=== PATIENT | male | born 1980 | race American Indian/Alaskan Native ===

== ENCOUNTER → 2016-08-19 | Outpatient (CLI) | payer OTHER ==
--- NOTE | 2016-08-22 09:18 | MR ---
EXAMINATION: MRI lumbar spine HISTORY: Radiculopathy COMPARISON: None TECHNIQUE: Multiplanar and multisequence images obtained of the lumbar spine without contrast. FINDINGS: The lumbar spinal alignment appears normal. The vertebral body heights appear well maintai rosalinda. There is no abnormal bone marrow signal. The distal spinal cord appears normal and the conus te rminates at L2. The SI joints are symmetric with early osteoarthritic changes anteriorly visualized retroperitoneal structures appear normal. T12 L4: Unremarkable. L4-L5: Tiny diffuse disc bulge without significant spinal canal or neural foraminal stenosis. L5-S1: Moderate right paracentral disc extrusion abutting the traversing right L5 nerve root. No sig nificant spinal canal stenosis. Mild bilateral neural foraminal stenosis. IMPRESSION: 1. Degenerative disc disease noted at L4-L5 and more so L5-S1 with details above.
== END ==
LOC: MW.MRI 13:44
PROVIDERS: ATTEND Family Medicine
DX: M54.5 Low back pain (principal); M54.16 Radiculopathy, lumbar region
CPT/HCPCS: 72148; 72148-26

== ENCOUNTER 2017-08-15 10:28 | Emergency (ER) | payer BC, OTHER ==
[2017-08-15] MEDS ORDERED: Sodium Chloride 0.9% 1,000 ML IV ONE (10:38)
[2017-08-15] MEDS ORDERED: Tamsulosin 0.4 MG Cap.ER PO ONE (10:39)
[2017-08-15] MEDS ORDERED: Ondansetron 4 MG/2 ML SDV IVPUSH ONE (10:39)
[2017-08-15] MEDS ORDERED: Ketorolac 30 MG/ML SDV IVPUSH ONE (10:39)
[2017-08-15] MEDS ORDERED: Sodium Chloride 0.9% 500 ML IV ONE (10:43)
[2017-08-15] MEDS ORDERED: Sodium Chloride 0.9% 1,000 ML IV SCH (10:45)
[2017-08-15] MEDS ORDERED: Sodium Chloride 0.9% 500 ML IV SCH (10:45)
--- NOTE | 2017-08-15 10:51 | EDM.PDOC ---
ED HPI GENERAL MEDICAL PROBLEM - General Chief Complaint: Flank Pain Stated Complaint: POSSIBLE KIDNEY STONE Time Seen by Provider: 08/15/17 10:37 Source of Information: Reports: Patient History Limitations: Reports: No Limitations - History of Present Illness INITIAL COMMENTS - FREE TEXT/NARRATIVE: Presents reporting left leg pain and dysuria. The patient states that yesterday he had some burning and frequency with urination. This morning he started with a backache on the left side. He went to an urgent care clinic where they did a UA been told him he had hematuria. They told him to report here for further evaluation. No history of renal stones but both of his parents have had kidney stones in the past. Otherwise healthy without chronic medical problems except a disc bulge at L5-S1. No fever, vomiting. Left Flank Pain Score (Numeric/FACES): 4 - Related Data Allergies Allergy/AdvReac Type Severity Reaction Status Date / Time Sulfa (Sulfonamide Allergy Rash Verified 08/15/17 10:35 Antibiotics) Home Meds: Home Meds Cyclobenzaprine [Flexeril] 10 mg PO ASDIRECTED PRN 08/15/17 [History] Hydrocodone/Acetaminophen [Hydrocodon-Acetaminophen 5-325] 1 tab PO ASDIRECTED PRN 08/15/17 [History] Tamsulosin [Tamsulosin 24 Hr] 1 cap PO DAILY #14 cap.er 08/15/17 [Rx] Past Medical History Cardiovascular History: Reports: Other (See Below) Other Cardiovascular History: hx of chostochondroitis Other Musculoskeletal History: bulging disc L5S1 - Infectious Disease History Infectious Disease History: Reports: Chicken Pox Social & Family History - Family History Family Medical History: Noncontributory - Tobacco Use Smoking Status *Q: Never Smoker - Caffeine Use Caffeine Use: Reports: Coffee - Recreational Drug Use Recreational Drug Use: No ED ROS GENERAL - Review of Systems Review Of Systems: ROS reveals no pertinent complaints other than HPI. ED EXAM, RENAL/ - Physical Exam Exam: See Below Exam Limited By: No Limitations General Appearance: Alert, No Apparent Distress Ears: Normal External Exam Nose: Normal Inspection Throat/Mouth: Normal Inspection Head: Atraumatic, Normocephalic Neck: Normal Inspection Respiratory/Chest: No Respiratory Distress, Lungs Clear, Normal Breath Sounds Cardiovascular: Normal Peripheral Pulses, Regular Rate, Rhythm, No Murmur GI/Abdominal: Soft, Non-Tender, No Distention Back Exam: Normal Inspection, CVA Tenderness (L) Extremities: Normal Inspection Neurological: Alert, Oriented, Normal Cognition Course - Vital Signs Last Recorded V/S: Last Vital Signs Temp 36.1 C 08/15/17 10:30 Pulse 65 08/15/17 10:30 Resp 20 08/15/17 10:30 BP 141/87 H 08/15/17 10:30 Pulse Ox 99 08/15/17 10:30 - Orders/Labs/Meds Orders: Active Orders 24 hr Category Date Time Status Abdomen Pelvis wo Cont [CT] Stat Exams 08/15/17 10:38 Ordered CBC WITH AUTO DIFF [HEME] Stat Lab 08/15/17 10:38 Ordered CMP [COMPREHENSIVE METABOLIC PN,CMP] [CHEM] Stat Lab 08/15/17 10:37 Ordered UA W/MICROSCOPIC [URIN] Stat Lab 08/15/17 10:38 Ordered Sodium Chloride 0.9% [Normal Saline] 500 ml Med 08/15/17 10:43 Active IV .BOLUS Sodium Chloride 0.9% [Normal Saline] 500 ml Med 08/15/17 10:45 Active IV .BOLUS Medication Orders Sodium Chloride (Normal Saline) 500 mls @ 999 mls/hr IV .BOLUS PIYUSH Sodium Chloride (Normal Saline) 500 mls @ 999 mls/hr IV .BOLUS ONE Stop: 08/15/17 11:13 Meds: Medications Generic Name Dose Route Start Last Admin Trade Name Freq PRN Reason Stop Dose Admin Sodium Chloride 500 mls @ 999 mls/hr 08/15/17 10:45 Normal Saline IV .BOLUS PIYUSH Sodium Chloride 500 mls @ 999 mls/hr 08/15/17 10:43 Normal Saline IV 08/15/17 11:13 .BOLUS ONE Discontinued Medications Generic Name Dose Route Start Last Admin Trade Name Freq PRN Reason Stop Dose Admin Sodium Chloride 1,000 mls @ 999 mls/hr 08/15/17 10:45 Normal Saline IV .BOLUS PIYUSH Ketorolac Tromethamine 30 mg 08/15/17 10:39 Toradol IVPUSH 08/15/17 10:40 ONETIME ONE Ondansetron HCl 4 mg 08/15/17 10:39 Zofran IVPUSH 08/15/17 10:40 ONETIME ONE Tamsulosin HCl 0.4 mg 08/15/17 10:39 Flomax PO 08/15/17 10:40 ONETIME ONE - Re-Assessments/Exams Free Text/Narrative Re-Assessment/Exam: 08/15/17 11:[address] Corbett Departure - Departure Time of Disposition: 11:45 Disposition: Home, Self-Care 01 Condition: Good Clinical Impression: Ureteral stone - Discharge Information Instructions: Kidney Stones, [id number] Additional Instructions: 1. Take your medication once daily until stone passes or you see urology. 2. Drink plenty of fluids. You may take the hydrocodone for pain that you already have for your back pain. 3. Strain all urine. 4. Follow up with urology at [facility]. - My Orders Last 24 Hours: My Active Orders 08/15/17 10:37 CMP [COMPREHENSIVE METABOLIC PN,CMP] [CHEM] Stat 08/15/17 10:38 Abdomen Pelvis wo Cont [CT] Stat CBC WITH AUTO DIFF [HEME] Stat UA W/MICROSCOPIC [URIN] Stat 08/15/17 10:43 Sodium Chloride 0.9% [Normal Saline] 500 ml IV .BOLUS 08/15/17 10:45 Sodium Chloride 0.9% [Normal Saline] 500 ml IV .BOLUS - Assessment/Plan Last 24 Hours: My Active Orders 08/15/17 10:37 CMP [COMPREHENSIVE METABOLIC PN,CMP] [CHEM] Stat 08/15/17 10:38 Abdomen Pelvis wo Cont [CT] Stat CBC WITH AUTO DIFF [HEME] Stat UA W/MICROSCOPIC [URIN] Stat 08/15/17 10:43 Sodium Chloride 0.9% [Normal Saline] 500 ml IV .BOLUS 08/15/17 10:45 Sodium Chloride 0.9% [Normal Saline] 500 ml IV .BOLUS
--- NOTE | 2017-08-15 11:35 | CT ---
CT of the abdomen and pelvis without contrast. HISTORY: Left flank pain TECHNIQUE: Axial CT images were obtained of the abdomen and pelvis without contrast. Coronal and sagi ttal reconstructions obtained. FINDINGS: The lung bases are clear, no pleural effusion. Moderate to severe fatty infiltration of the liver. The spleen, adrenal glands, and pancreas appear u nremarkable for noncontrast examination. The gallbladder appears normal. There is no bulky retroperi toneal lymphadenopathy. No abdominal ascites. There is a 4 mm stone at the left ureterovesicular junction with mild proximal hydronephrosis. The large and small bowel are normal in caliber without evidence of obstruction. The appendix appears normal. There is no bulky pelvic lymphadenopathy. No free fluid. No free air. The urinary bladder ap pears normal. Small area of central asymmetric adjacent stranding within the left lower quadrant. Pos sibly old epiploic appendagitis. The visualized osseous structures appear normal. IMPRESSION: 1. There is a 4 mm obstructing stone at the left ureterovesicular junction with mild proximal hydrone phrosis.
[2017-08-15 11:43] LABS: CHLORIDE,CL 103 mmol/L (98-107); SODIUM,NA 139 mmol/L (136-148)
== END 2017-08-15 12:05 | disposition home or self-care (01) ==
LOC: MW.ED 10:28
DX: N13.2 Hydronephrosis with renal and ureteral calculous obstruction (principal); Z88.2 Allergy status to sulfonamides
CPT/HCPCS: 36415; 74176; 80053; 81001; 85025; 96361; 96374; 96375; 99284; A9270; J1885; J2405; J7040; 99283

== ENCOUNTER 2018-06-13 16:13 | Emergency (ER) | payer OTHER, BC ==
--- NOTE | 2018-06-13 16:26 | EDM.PDOC ---
ED HPI GENERAL MEDICAL PROBLEM - General Stated Complaint: FALL HEAD INJURY Time Seen by Provider: 06/13/18 16:25 Source of Information: Reports: Patient History Limitations: Reports: No Limitations - History of Present Illness INITIAL COMMENTS - FREE TEXT/NARRATIVE: HISTORY AND PHYSICAL: History of present illness: Patient is a 37-year-old male who presents to the ED today after falling on the ice about 2 hours ago. He states that he was working and slipped on the ice and fell back and hit the back of his head. He states he did not lose consciousness but had a headache instantly with some blurry vision that still remains. He states he does not currently have a headache anymore but the front of his head feels "funny". He denies neck pain, back pain, fevers, chills, loss of vision, changes in smell , nausea, vomiting, or any other respiratory or GI symptom. Review of systems: As per history of present illness and below otherwise all systems reviewed and negative. Past medical history: As per history of present illness and as reviewed below otherwise noncontributory. Surgical history: As per history of present illness and as reviewed below otherwise noncontributory. Social history: See social history for further information Family history: As per history of present illness and as reviewed below otherwise noncontributory. Physical exam: General: Well-developed and well-nourished 37-year-old male. Alert and oriented. Nontoxic appearing and in no acute distress. HEENT: Nontender with palpation, normocephalic, pupils equal and reactive bilaterally, negative for conjunctival pallor or scleral icterus, mucous membranes moist, TMs normal bilaterally, throat clear, neck supple, nontender, trachea midline. No drooling or trismus noted. No meningeal signs. No hot potato voice noted. Lungs: Clear to auscultation, breath sounds equal bilaterally, chest nontender. Heart: S1S2, regular rate and rhythm without overt murmur Abdomen: Soft, nondistended, nontender. Negative for masses or hepatosplenomegaly. Negative for costovertebral tenderness. Pelvis: Stable nontender. Genitourinary: Deferred. Rectal: Deferred. Skin: Intact, warm, dry. No lesions or rashes noted. C-spine/Back: No pinpoint vertebral tenderness upon palpation. No crepitus, step -offs or obvious deformities. Patient is fully ambulatory without any difficulty or deficits. He is able to walk on his heels and toes without difficulty. Denies any numbness or tingling to the distal extremities. Denies any urinary or fecal incontinence. Extremities: Moves all extremities per self without difficulty or deficits, negative for cords or calf pain. Neurovascular unremarkable. Neuro: Awake, alert, oriented. Cranial nerves II through XII unremarkable. Cerebellum unremarkable. Motor and sensory unremarkable throughout. Exam nonfocal. Notes: Visual acuity was completed left, right and both eyes are 20/20. He does wear contact lenses, currently has them in. Head CT shows no acute intracranial abnormality. Discussed this with patient and reviewed head injury instructions. Encourage patient to follow-up with ophthalmology if he continues to have any concerns with his vision. My visual exam and physical examination show no concerning findings he voices understanding and is agreeable to plan of care. Denies any further questions or concerns at this time. Diagnostics: Head CT Therapeutics: None Prescription: None Impression: Head Injury Plan: 1. Please review the head injury instructions as we discussed in her printed in your packet. 2. Tylenol and/or ibuprofen as needed for pain management. 3. Please follow-up with your primary caregiver in the next 1-2 days. Return to the ED as needed and as discussed. Definitive disposition and diagnosis as appropriate pending reevaluation and review of above. - Related Data Allergies Allergy/AdvReac Type Severity Reaction Status Date / Time Sulfa (Sulfonamide Allergy Rash Verified 08/15/17 10:35 Antibiotics) Home Meds: Home Meds Cyclobenzaprine [Flexeril] 10 mg PO ASDIRECTED PRN 08/15/17 [History] Hydrocodone/Acetaminophen [Hydrocodon-Acetaminophen 5-325] 1 tab PO ASDIRECTED PRN 08/15/17 [History] Past Medical History Cardiovascular History: Reports: Other (See Below) Other Cardiovascular History: hx of chostochondroitis Other Musculoskeletal History: bulging disc L5S1 - Infectious Disease History Infectious Disease History: Reports: Chicken Pox Social & Family History - Family History Family Medical History: Noncontributory - Caffeine Use Caffeine Use: Reports: Coffee ED ROS GENERAL - Review of Systems Review Of Systems: ROS reveals no pertinent complaints other than HPI. ED EXAM, HEAD INJURY - Physical Exam Exam: See Below (see dictation) Course - Vital Signs Last Recorded V/S: Last Vital Signs Temp 96.7 F 06/13/18 16:31 Pulse 68 06/13/18 16:31 Resp 16 06/13/18 16:31 BP 137/87 06/13/18 16:31 Pulse Ox 96 06/13/18 16:31 - Orders/Labs/Meds Orders: Active Orders 24 hr Category Date Time Status Communication Order [RC] STAT Care 06/13/18 16:42 Active Departure - Departure Time of Disposition: 17:47 Disposition: Home, Self-Care 01 Clinical Impression: Head injury Qualifiers: Encounter type: initial encounter Qualified Code(s): S09.90XA - Unspecified injury of head, initial encounter - Discharge Information Instructions: Head Injury, Adult, [id number] Referrals: Oscar Hernandez MD [Primary Care Provider] - Additional Instructions: The following information is given to patients seen in the emergency department who are being discharged to home. This information is to outline your options for follow-up care. We provide all patients seen in our emergency department with a follow-up referral. The need for follow-up, as well as the timing and circumstances, are variable depending upon the specifics of your emergency department visit. If you don't have a primary care physician on staff, we will provide you with a referral. We always advise you to contact your personal physician following an emergency department visit to inform them of the circumstance of the visit and for follow-up with them and/or the need for any referrals to a consulting specialist. The emergency department will also refer you to a specialist when appropriate. This referral assures that you have the opportunity for follow-up care with a specialist. All of these measure are taken in an effort to provide you with optimal care, which includes your follow-up. Under all circumstances we always encourage you to contact your private physician who remains a resource for coordinating your care. When calling for follow-up care, please make the office aware that this follow-up is from your recent emergency room visit. If for any reason you are refused follow-up, please contact the [facility] at and asked to speak to the emergency department charge nurse. [facility] [address] [place] [id number] [facility] [address] [place] [id number] 1. Please review the head injury instructions as we discussed in her printed in your packet. 2. Tylenol and/or ibuprofen as needed for pain management. 3. Please follow-up with your primary caregiver in the next 1-2 days. Return to the ED as needed and as discussed. - My Orders Last 24 Hours: My Active Orders 06/13/18 16:42 Communication Order [RC] STAT - Assessment/Plan Last 24 Hours: My Active Orders 06/13/18 16:42 Communication Order [RC] STAT
--- NOTE | 2018-06-13 17:32 | CT ---
Indication: Dizziness status post fall Technique: CT of the head without contrast. Coronal and sagittal reformats. Comparison: No prior studies available for comparison at this institution. Findings: No acute intracranial hemorrhage or extra-axial collection. No evidence of acute cortical infarction. No mass effect or midline shift. Normal cerebral volume. The ventricles are normal in size, shape and contour. There is normal fernandes and white matter differentiation. The orbital contents are normal. Mild polypoid mucosal thickening in the maxillary sinuses. Mastoid air cells are clear. No calvarial fractures. No lytic or sclerotic osseous lesions within the calvarium or skull base. Scalp and other imaged soft tissue structures are normal. Impression: No acute intracranial abnormality. Please note that all CT scans at this facility use dose modulation, iterative reconstruction, and/or weight-based dosing when appropriate to reduce radiation dose to as low as reasonably achievable. Dictated by Camilo Bryant MD @ Jun 13 2018 5:28PM Signed by Dr. Camilo Bryant @ Jun 13 2018 5:31PM
== END 2018-06-13 17:59 | disposition home or self-care (01) ==
LOC: MW.ED 16:13
DX: S09.90XA Unspecified injury of head, initial encounter (principal); Z88.2 Allergy status to sulfonamides; W00.0XXA Fall on same level due to ice and snow, initial encounter
CPT/HCPCS: 70450; 70450-26; 99283-25